=== PATIENT | female | born 1985 | race Two or more races ===

== ENCOUNTER 2019-08-16 18:37 | Inpatient (IN) | payer MEDICAID, OTHER ==
[~2019-08-16] VITALS: Ht 154.9 cm; Wt 98.9 kg
[2019-08-16] MEDS ORDERED: LACTATED RINGER'S 1,000 ML IV ONE (19:26)
[2019-08-16] MEDS: TERBUTALINE SULFATE 1 MG/ML 1ML VIAL SC SCH (20:02)
[2019-08-16] MEDS ORDERED: hydrALAZINE HCL 20 MG/ML VL ONE (20:13)
[2019-08-16] MEDS ORDERED: hydrALAZINE HCL 20 MG/ML VL IV ONE (20:15)
[2019-08-16] MEDS ORDERED: MAGNESIUM SULFATE 40MG/ML 1,000 ML IV SCH (21:01)
[2019-08-16] MEDS ORDERED: LACTATED RINGER'S 1,000 ML IV SCH ×2 (21:01→23:18)
[2019-08-16] MEDS ORDERED: MAGNESIUM SULFATE 100 ML IV ONE ×2 (21:11→21:15)
[2019-08-16 21:23] LABS: Basophils # (auto) 0.1 10 ^3/uL (0-0.2); Eosinophils # (auto) 0 10 ^3/uL (0-0.8); Hemoglobin 13.4 g/dL (12.2-16.2); Monocytes # (auto) 0.9 10 ^3/uL (0-1.3)
[2019-08-16 21:26] LABS: Basophils % (auto) 0.5 % (0.0-2.0); Eosinophils % (auto) 0.4 % (0.0-7.0); Hematocrit 41.3 % (36.0-46.0); Lymphocytes # (auto) 4.1 10 ^3/uL (0.4-5.4); Lymphocytes % (auto) 33.3 % (10.0-50.0); Mean Corpuscular Hemoglobin 26.6 pg (28.0-32.0); Mean Corpuscular Hgb Conc. 32.5 g/dL (32.0-36.0); Mean Corpuscular Volume 81.7 fL (80.0-100.0); Monocytes % (auto) 7.4 % (0.0-12.0); Neutrophils # (auto) 7.2 10 ^3/uL (1.6-8.6); Neutrophils % (auto) 58.4 % (37.0-80.0); Nucleated Red Blood Cells % 0.2 %; Platelet Count (auto) 224 10^3/uL (140-450); Red Blood Cells 5.05 10^6/uL (4.0-5.20); Red Cell Distribution Width 15.7 % (11.8-14.3); White Blood Cell 12.3 10^3/uL (4.4-10.8)
[2019-08-16 21:38] LABS: Albumin 2.5 g/dL (3.4-5.0); Calcium 8.8 mg/dL (8.5-10.1); Potassium 3.7 mmol/L (3.5-5.1)
[2019-08-16 21:39] LABS: INR 0.94 (0.9-1.15); Partial Thromboplastin Time 29.2 sec (23.64-32.05)
[2019-08-16 21:43] LABS: BUN/Creatinine Ratio 14.3; Bilirubin, Total 0.2 mg/dL (0.2-1.0); Total Protein 6.9 g/dL (6.4-8.2); Uric Acid 5.4 mg/dL (2.6-6.0)
[2019-08-16] MEDS ORDERED: TETRACAINE 1% INJ 2 ML VIAL IJ ONE (21:51)
[2019-08-16] MEDS ORDERED: MORPHINE SULF(PF) 0.5MG/ML 10ML VIAL ONE (21:53)
[2019-08-16] MEDS ORDERED: PHENYLEPHRINE HCL 10 MG/ML VL ONE (21:54)
[2019-08-16] MEDS ORDERED: ePHEDrine SULFATE 50 MG/ML AMP ONE (21:54)
[2019-08-16] MEDS ORDERED: oxyTOCIN 10 UNIT/ML 10ML VIAL ONE (21:56)
[2019-08-16] MEDS ORDERED: ceFAZolin 1GM VL ONE (21:57)
[2019-08-16] MEDS ORDERED: METOCLOPRAMIDE HCL 5MG/ml INJ 2ml VIAL ONE (22:21)
[2019-08-16] MEDS ORDERED: MIDAZOLAM HCL 1MG/1ML-2 ML VIAL ONE ×2 (22:32→22:46)
[2019-08-16] MEDS ORDERED: ONDANSETRON HCL 4 MG/2 ML VIAL ONE (22:38)
[2019-08-16] MEDS ORDERED: diphenhdrAMINE HCL 50 MG/1 ML VL IV PRN (23:00)
[2019-08-16] MEDS ORDERED: NALOXONE HCL 0.4 MG/ML VIAL IV PRN ×2 (23:00)
[2019-08-16] MEDS ORDERED: KETOROLAC TROMETH 30 MG/ML 1ML VIAL IV PRN (23:00)
[2019-08-16] MEDS ORDERED: HYDROmorphone HCL 2 MG/ML VL IV PRN ×2 (23:00→23:30)
[2019-08-16] MEDS ORDERED: ONDANSETRON HCL 4 MG/2 ML VIAL IV PRN ×3 (23:00→23:30)
[2019-08-16] MEDS ORDERED: ACETAMINOPHEN IV 1000 MG/100ML (10MG/ML) IV PRN (23:30)
[2019-08-17] VITALS (12 sets, daily range): BP systolic 125–150; BP diastolic 60–84
[2019-08-17] MEDS ORDERED: PREN-96 PO (06:27)
[2019-08-17] MEDS: ceFAZolin 1GM/50ML 50 ML IV SCH ×2 (06:47→15:10)
[2019-08-17 06:59] LABS: Eosinophils # (auto) 0 10 ^3/uL (0-0.8); Eosinophils % (auto) 0.1 % (0.0-7.0); Monocytes # (auto) 0.8 10 ^3/uL (0-1.3); Monocytes % (auto) 5.8 % (0.0-12.0)
[2019-08-17 07:01] LABS: Basophils # (auto) 0.1 10 ^3/uL (0-0.2); Basophils % (auto) 0.4 % (0.0-2.0); Hematocrit 36.5 % (36.0-46.0); Lymphocytes # (auto) 2.2 10 ^3/uL (0.4-5.4); Lymphocytes % (auto) 15.4 % (10.0-50.0); Mean Corpuscular Hemoglobin 27.2 pg (28.0-32.0); Mean Corpuscular Volume 82.4 fL (80.0-100.0); Neutrophils % (auto) 78.3 % (37.0-80.0); Nucleated Red Blood Cells % 0.1 %; Platelet Count (auto) 225 10^3/uL (140-450); Red Blood Cells 4.43 10^6/uL (4.0-5.20); Red Cell Distribution Width 15.6 % (11.8-14.3); White Blood Cell 14.1 10^3/uL (4.4-10.8)
[2019-08-17 07:22] LABS: Albumin 2.1 g/dL (3.4-5.0); BUN/Creatinine Ratio 14.8; Bilirubin, Total 0.2 mg/dL (0.2-1.0); Calcium 7.8 mg/dL (8.5-10.1); Total Protein 6.1 g/dL (6.4-8.2)
[2019-08-17] MEDS ORDERED: SIMETHICONE 80 MG CHEWABLE TABLET PO PRN (08:30)
[2019-08-17] MEDS ORDERED: DOCUSATE SOD 100 MG CAP PO SCH (10:00)
[2019-08-17] MEDS ORDERED: LACTATED RINGER'S 1,000 ML IV SCH (11:51)
[2019-08-17] MEDS ORDERED: HYDROcodone-ACET 5/325MG TAB PO PRN (12:00)
[2019-08-17] MEDS: IBUPROFEN 800 MG TAB PO PRN (12:21)
[2019-08-17] MEDS: SIMETHICONE 80 MG CHEWABLE TABLET PO PRN ×2 (12:22→16:41)
[2019-08-17] MEDS ORDERED: LABETALOL HCL 200 MG TAB PO ONE (13:15)
[2019-08-17] MEDS: HYDROcodone-ACET 5/325MG TAB PO PRN ×2 (15:11→20:25)
[2019-08-17] MEDS: TERBUTALINE SULFATE 1 MG/ML 1ML VIAL SC SCH (17:49)
[2019-08-17] MEDS ORDERED: HYDROcodone-ACET 5/325MG TAB ONE (20:18)
[2019-08-17] MEDS: DOCUSATE SOD 100 MG CAP PO SCH (22:31)
[2019-08-17] MEDS: LABETALOL HCL 200 MG TAB PO SCH (22:36)
[2019-08-17] MEDS ORDERED: ceFAZolin 1GM/50ML 50 ML IV ONE (23:00)
[2019-08-18 03:30] VITALS: BP 141/78
[2019-08-18] MEDS: IBUPROFEN 800 MG TAB PO PRN ×2 (04:19→19:26)
[2019-08-18 05:10] LABS: RPR Non Reactive (Non Reactive)
[2019-08-18 07:00] VITALS: BP 120/62
[2019-08-18] MEDS: DOCUSATE SOD 100 MG CAP PO SCH ×2 (09:18→22:08)
[2019-08-18] MEDS: HYDROcodone-ACET 5/325MG TAB PO PRN ×3 (09:19→22:08)
[2019-08-18] MEDS: LABETALOL HCL 200 MG TAB PO SCH ×2 (09:21→22:09)
[2019-08-18 10:51] VITALS: BP 124/69
[2019-08-18] MEDS: SODIUM CHLOR 0.9% PF (SALINE LOCK) 10ML VIAL/SYR IV SCH ×2 (14:00→22:07)
[2019-08-18 15:00] VITALS: BP 139/73
[2019-08-18 18:30] VITALS: BP 139/78
[2019-08-18 23:08] VITALS: BP 141/88
[2019-08-19] MEDS: HYDROcodone-ACET 5/325MG TAB PO PRN (03:00)
[2019-08-19 03:15] VITALS: BP 120/62
[2019-08-19 07:00] VITALS: BP 137/80
[2019-08-19] MEDS: IBUPROFEN 800 MG TAB PO PRN (07:01)
== END 2019-08-19 10:06 | disposition home or self-care (01) | DRG 540 ==
LOC: LDRP 18:37 → OBSVTOIN 20:11 → LDRP 20:13
PROVIDERS: ADMIT Specialist; ATTEND Specialist
PROC: 0UL70CZ Occlusion of Bilateral Fallopian Tubes with Extraluminal Device, Open Approach (ICD-10-PCS; 2019-08-16)
PROC: 10D00Z1 Extraction of Products of Conception, Low, Open Approach (ICD-10-PCS; principal; 2019-08-16 22:05)
DX: O34.211 Maternal care for low transverse scar from previous cesarean delivery (principal); O13.9 Gestational [pregnancy-induced] hypertension without significant proteinuria, unspecified trimester; Z37.0 Single live birth; Z3A.37 37 weeks gestation of pregnancy; O99.62 Diseases of the digestive system complicating childbirth; K66.0 Peritoneal adhesions (postprocedural) (postinfection); Z11.59 Encounter for screening for other viral diseases
CPT/HCPCS: 36415; 59025; 76805; 80053; 83735; 84112; 84550; 85025; 85362; 85379; 85610; 85730; 86592; 86850; 86900; 86901; 94762; 96360; 96361; 96365; 96366; 96372; 96374; G0378; J0690; J2250; J2405; J2590